=== PATIENT | male | born 1985 | race Caucasian/White ===

== ENCOUNTER 2019-12-11 07:51 | Emergency (ER) | payer MEDICAID, OTHER ==
[~2019-12-11] VITALS: Ht 172.7 cm; Wt 98.8 kg
--- NOTE | 2019-12-11 07:55 | NUR ---
NO ANSWER IN LOBBY.
--- NOTE | 2019-12-11 08:10 | NUR ---
PT AMBULATED TO THE BR W/ A STEADY GAIT. URINE CUP PROVIDED.
--- NOTE | 2019-12-11 08:16 | NUR ---
THIS IS A 34 YO M W/ C/O "GUT PAIN" (POINTS TO LWR ABD PAIN), GAS, CONSTIPATION/DIARRHEA, FREQUENT URINATION. STARTED "A FEW YEARS AGO, I THOUGHT IT WAS GETTING BETTER BUT NOW IT FEELS LIKE ITS FLARING UP". HX:PANCREATITIS. DENIES N/V. AT BEDSIDE FOR ED EVAL. AWAITING ORDERS. CALL LIGHT IN REACH.
[2019-12-11] MEDS ORDERED: SODIUM CHLORIDE 0.9% 1,000 ML IV ONE (08:23)
[2019-12-11] MEDS ORDERED: SODIUM CHLORIDE FLUSH 10ML SYR IVF ONE (08:30)
[2019-12-11 08:39] LABS: MICROSCOPIC NOT IND
--- NOTE | 2019-12-11 08:43 | NUR ---
PIV STARTED, LABS DRAWN. 1L NS STARTED. PT RESTING ON [place] W/ CALL LIGHT IN REACH AWAITING RAD.
[2019-12-11 08:45] VITALS: BP 118/79
[2019-12-11 08:46] LABS: CULTURE INDICATED? NO
--- NOTE | 2019-12-11 08:49 | NUR ---
PT REQ HIV AND HEP SCREENING. PT REPORTS IV DRUG USE 7 MONTHS AGO. NOTIFIED. ADDITIONAL LAB TESTS ORDERED.
[2019-12-11 09:07] LABS: MEAN CORPUSCULAR HEMOGLOBIN 29.8 pg (27.5-34.5); MEAN CORPUSCULAR HGB CONC 33.6 g/dL (33.2-36.2); MEAN CORPUSCULAR VOLUME 88.7 fL (81-97); PLATELET COUNT 299 x10^3/uL (130-400); RED BLOOD COUNT 5.34 x10^6/uL (4.38-5.82); RED CELL DISTRIBUTION WIDTH 12.8 % (9.4-14.8)
[2019-12-11 09:12] LABS: ALBUMIN 4.2 g/dL (3.4-5.0); ANION GAP 5 mmol/L (5-15); CALCIUM 8.8 mg/dL (8.5-10.1); CHLORIDE 109 mmol/L (98-107)
[2019-12-11 09:16] LABS: ALANINE AMINOTRANSFERASE 20 U/L (12-78); ALKALINE PHOSPHATASE 122 U/L (45-117); BILIRUBIN,TOTAL 0.4 mg/dL (0.2-1.0); TOTAL PROTEIN 7.7 g/dL (6.4-8.2)
[2019-12-11 09:47] LABS: MD YES
[2019-12-11 09:48] LABS: BASOS#(MANUAL) 0.09 x10^3/uL (0-0.1); BASOS% (MANUAL) 1 % (0-1); EOS#(MANUAL) 0.35 x10^3/uL (0.0-0.4); EOS% (MANUAL) 4 % (1-7); LYMPH#(MANUAL) 5.81 x10^3/uL (1-3.4); LYMPHS% (MANUAL) 66 % (22-44); MONOS#(MANUAL) 0.79 x10^3/uL (0.3-2.7); MONOS% (MANUAL) 9 % (2-9); SEG#(MANUAL) 1.76 x10^3/uL (1.8-6.8); SEGS% (MANUAL) 20 % (42-75)
[2019-12-11 09:49] LABS: <PLATELET ESTIMATE> ADEQUATE; <PLT MORPHOLOGY> NORMAL PLT MORPH; <RBC MORPHOLOGY> NORMAL
--- NOTE | 2019-12-11 10:36 | NUR ---
TELEPHONE CALL PLACED TO CT REGARDING DELAY. 1 PT AHEAD OF THIS PT.
--- NOTE | 2019-12-11 11:03 | NUR ---
PT TO CT.
[2019-12-11] MEDS ORDERED: OMNIPAQUE 350 MG/ML, 100ML BOTTLE ONE (11:22)
--- NOTE | 2019-12-11 11:23 | NUR ---
PT BACK FROM CT.
--- NOTE | 2019-12-11 11:38 | NUR ---
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
--- NOTE | 2019-12-11 12:25 | NUR ---
PT RETURNED TO ROOM, "I'M JUST WAITING FOR THE DR TO REPRINT THE DISCHARGE INSTRUCTIONS WITHOUT OUT THE MIRALAX ON IT. THE PROGRAM I'M IN, THEY MAKE YOU TAKE ANY PRESCRIPTIONS THAT ARE GIVEN OUT. I ALREADY EATA HIGH FIBER DIET AND HAVE TO GO TO THE BR ALL THE TIME. I HAVE BEEN MAKED DOWN, BECAUSE I HAVE BEEN HAVING THESE GUT ISSUES" PT PROVIDED WITH DC INSTRUCTIONS WITHOUT RX FOR MIRALAX.
== END 2019-12-11 12:29 | disposition home or self-care (01) ==
LOC: ED 09:57
DX: K59.00 Constipation, unspecified (principal); R10.31 Right lower quadrant pain; R19.7 Diarrhea, unspecified; Z87.891 Personal history of nicotine dependence
CPT/HCPCS: 36415; 74177; 80053; 80074; 81003; 83605; 83690; 85025; 87491; 87591; 87806; 96360; 99285; J7030; Q9967; G0475